=== PATIENT | female | born 1960 ===

== ENCOUNTER 2020-08-23 14:50 | Inpatient (IN) | payer BC, OTHER ==
[~2020-08-23] VITALS: Ht 170.2 cm; Wt 111.1 kg
[2020-08-23] MEDS ORDERED: ONDANSETRON 4 MG/2 ML (SDV) Z0FRAN IV PRN (16:45)
[2020-08-23] MEDS ORDERED: ACETAMINOPHEN 325 MG TABLET PO PRN (16:45)
[2020-08-23 19:14] VITALS: BP 124/66
[2020-08-23 19:20] LABS: BASOPHILS % (AUTO) 0 % (0-10); EOSINOPHILS % (AUTO) 0 % (0-10); HEMATOCRIT 36 % (35-52); HEMOGLOBIN 12.8 g/dL (11.5-16.0); LYMPHOCYTES # (AUTO) 0.5 10^3/uL (1.0-4.0); LYMPHOCYTES % (AUTO) 6 % (12-44); MEAN CORPUSCULAR HEMOGLOBIN 34 pg (25-34); MEAN CORPUSCULAR HGB CONC 36 g/dL (32-36); MEAN CORPUSCULAR VOLUME 94 fL (80-99); MEAN PLATELET VOLUME 9.3 fL (9.0-12.2); MONOCYTES # (AUTO) 0.3 10^3/uL (0.0-1.0); MONOCYTES % (AUTO) 3 % (0-12); NEUTROPHILS # (AUTO) 8.5 10^3/uL (1.8-7.8); NEUTROPHILS % (AUTO) 90 % (42-75); PLATELET COUNT 294 10^3/uL (130-400); WHITE BLOOD COUNT 9.4 10^3/uL (4.3-11.0)
[2020-08-23] MEDS: ENOXAPARIN 40 MG/0.4 ML (LOVENOX) SYR SC SCH (19:31)
[2020-08-23 19:45] LABS: ALANINE AMINOTRANSFERASE 60 U/L (0-55); ALKALINE PHOSPHATASE 86 U/L (40-136); BILIRUBIN,TOTAL 0.5 MG/DL (0.1-1.0); BUN/CREATININE RATIO 20; CALCIUM 8.7 MG/DL (8.5-10.1); CARBON DIOXIDE 21 MMOL/L (21-32); CHLORIDE 103 MMOL/L (98-107); GFR ESTIMATED > 60; GLUCOSE 127 MG/DL (70-105); POTASSIUM 4.2 MMOL/L (3.6-5.0); SODIUM 139 MMOL/L (135-145); TOTAL PROTEIN 7.1 GM/DL (6.4-8.2)
[2020-08-23 20:13] LABS: FIBRIN DEGRADATION PRODUCTS 3.15 UG/ML (0.00-0.49); INR 1.1 (0.8-1.4); PROTHROMBIN TIME PATIENT 14.2 SEC (12.2-14.7)
[2020-08-23 20:29] LABS: LYMPHOCYTES % (MANUAL) 5 %; MONOCYTES % (MANUAL) 2 %; NEUTROPHILS % (MANUAL) 93 %; RBC MORPH NORMAL
[2020-08-23 20:38] VITALS: BP 130/69
[2020-08-24 00:24] VITALS: BP 132/70
[2020-08-24 04:00] VITALS: BP 118/67
[2020-08-24] MEDS: guaiFENesin SYRUP 100 MG/5 ML 10 ML (ROBITUSSIN SF) PO PRN (04:36)
[2020-08-24] MEDS: LEVOTHYROXINE 150 MCG (LEVOTHROID) TAB PO SCH (06:05)
[2020-08-24 08:00] VITALS: BP 119/89
--- NOTE | 2020-08-24 08:34 | Diagnostic Imaging Report ---
INDICATION: Pneumonia. Time of exam: 4:38 AM No prior studies are available for comparison. Heart size is normal. There appear to be minimal patchy infiltrate right mid lung field. There may be some mild right perihilar infiltrate as well. Left lung is fairly clear. No effusion or pneumothorax is detected. IMPRESSION: Patchy right-sided pulmonary infiltrate suggestive of pneumonia. Dictated by: Dictated on workstation # [id number]
[2020-08-24 12:00] VITALS: BP 119/72
[2020-08-24] MEDS ORDERED: NS IV 500 ML 500 ML IV SCH (12:30)
[2020-08-24] MEDS ORDERED: REMDESIVIR INJ (NON-FORMULARY) 200 MG in NS (IVPB) 210 ML IV NR (12:30)
--- NOTE | 2020-08-24 12:40 | History & Physical-Hospitalist ---
History of Present Illness HPI/Chief Complaint Pt is a 60yo female with past medical history of hypothyroidism who presented to outside ER due to nausea vomiting and weakness. She diagnosed with COVID last week with symptom onset 8 days ago. She continued to feel weak and was unable to keep anything down prompting her to seek evaluation yesterday. Chest x-ray showed right-sided pneumonia. And she was unable to tolerate any oral intake still. She is mildly hypoxic requiring 3 L to keep her oxygen saturation above 90. She was admitted for further management. This morning she states she is feeling better and her nausea is improving. She is still on oxygen. Her only concern is about her ability to pay for this hospital stay. 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 Patients Allergies have been reviewed. Allergies Allergies Coded Allergies No Allergy Information Available (Xnyyanerwa72/6/20) Past Rjmicql-Flksfu-Hkgpqs Hx Past Med/Social Hx: Reviewed Nursing Past Med/Soc Hx Patient Social History Alcohol Use: Denies Use Recreational Drug Use: No Smoking Status: Unknown if Ever Smoked Physical Abuse Screen: No Sexual Abuse: No Recent Foreign Travel: No Contact w/other who traveled: No Recent Hopitalizations: No Recent Infectious Disease Expo: Yes Immunizations Up To Date Pediatric: No Seasonal Allergies Seasonal Allergies: Yes Past Medical History Currently Using CPAP: No Currently Using BIPAP: No Sexually Transmitted Disease: No HIV/AIDS: No Female Reproductive Disorders: Denies Are Your Blood Sugars Over 250: No History of Blood Disorders: No Adverse Reaction to Blood Dominguez: No Family History Reviewed Nursing Family Hx Review of Systems Constitutional: fever, malaise, weakness Respiratory: cough, phlegm Cardiovascular: No chest pain, No palpitations Gastrointestinal: No abdominal pain; constipation, nausea, vomiting Genitourinary: No decreased output, No dysuria Musculoskeletal: no symptoms reported Skin: no symptoms reported Psychiatric/Neurological: No Symptoms Reported Physical Exam Physical Exam Vital Signs Vital Signs - First Documented 08/23/20 19:14 Temp 36.6 Pulse 73 Resp 20 B/P (MAP) 124/66 Pulse Ox 91 O2 Delivery Nasal Cannula O2 Flow Rate 3.00 Capillary Refill : Less Than 3 Seconds Height, Weight, BMI Height: '" Weight: lbs. oz. kg; 38.35 BMI Method: General Appearance: No Apparent Distress, WD/WN, Obese HEENT: PERRL/EOMI, Moist Mucous Membranes Neck: Normal Inspection, Supple Respiratory: Lungs Clear, No Accessory Muscle Use, No Respiratory Distress Cardiovascular: Regular Rate, Rhythm, No Murmur Gastrointestinal: Normal Bowel Sounds, Non Tender, Soft Extremity: No Calf Tenderness, No Pedal Edema Neurologic/Psychiatric: Alert, Oriented x3, Normal Mood/Affect Skin: Normal Color, Warm/Dry Results Results/Procedures Labs Laboratory Tests 08/23/20 18:55 Patient resulted labs reviewed. Imaging: Reviewed Imaging Report Imaging [facility] [place] NAME: ANNE STRONG [facility] REC#: [id number] PT STATUS: ADM IN : 1960 PHYSICIAN: CHAPINCITO CORREA MD ADMIT DATE: 08/23/20 Draft Date of Exam:08/24/20 CHEST 1 VIEW, AP/PA ONLY INDICATION: Pneumonia. Time of exam: 4:38 AM No prior studies are available for comparison. Heart size is normal. There appear to be minimal patchy infiltrate right mid lung field. There may be some mild right perihilar infiltrate as well. Left lung is fairly clear. No effusion or pneumothorax is detected. IMPRESSION: Patchy right-sided pulmonary infiltrate suggestive of pneumonia. Dictated on workstation # [id number] Dict: 08/24/20 0756 Trans: 08/24/20 0833 LC [id number] Interpreted by: ERICK FERNANDEZ MD Electronically signed by: Assessment/Plan Admission Diagnosis Acute Hypoxic respiratory failure from COVID19 Admission Status: Inpatient Order (span 2 midnights) Reason for Inpatient Admission: see below Assessment and Plan Acute Hypoxic respiratory failure from COVID19 RML PNA Intractable nausea and vomiting Attempted home management for a week but unable to continue at home Continue decadron Discussed Remdesivir and convalescent plasma with patient and EUA status, pt is agreeable to treatment IS Prone as able MAT protocol Lovenox Procal pending Continue Azithromycin Zofran prn nausea Hypothyroidism Continue home synthroid DVT ppx: Lovenox Diagnosis/Problems Diagnosis/Problems (1) Acute respiratory failure (2) Insulin dependent diabetes mellitus (3) Hypothyroidism (4) COVID-19 Clinical Quality Measures DVT/VTE Risk/Contraindication: Risk Factor Score Per Nursin RFS Level Per Nursing on Admit: 3=High CHAPINCITO CORREA MD Aug 24, 2020 12:40
[2020-08-24] MEDS: AZITHROMYCIN 250 MG TAB (ZITHROMAX) PO SCH (13:33)
[2020-08-24 16:07] VITALS: BP 112/59
[2020-08-24] MEDS ORDERED: ANTACID SUSP 30 ML UDC (MYLANTA) PO PRN (17:00)
[2020-08-24] MEDS ORDERED: BISACODYL 10 MG SUPP (DULCOLAX) PR PRN (17:00)
[2020-08-24] MEDS ORDERED: ONDANSETRON 4 MG/2 ML (SDV) Z0FRAN IV PRN (17:00)
[2020-08-24] MEDS ORDERED: hydrOXYzine (ATARAX) 10 MG TAB PO PRN (17:00)
[2020-08-24] MEDS ORDERED: MILK OF MAGNESIA 400 MG/5 ML 30 ML UDC PO PRN (17:00)
[2020-08-24] MEDS ORDERED: ACETAMINOPHEN 325 MG TABLET PO PRN (17:00)
[2020-08-24] MEDS ORDERED: MELATONIN 3 MG TABLET PO PRN (17:00)
[2020-08-24] MEDS: ENOXAPARIN 40 MG/0.4 ML (LOVENOX) SYR SC SCH (17:11)
[2020-08-24 19:17] VITALS: BP 120/80
[2020-08-24] MEDS: BENZONATATE 100 MG (TESSALON) CAPSULE PO PRN (21:15)
[2020-08-25] VITALS (9 sets, daily range): BP systolic 107–136; BP diastolic 55–78
[2020-08-25] MEDS: LEVOTHYROXINE 150 MCG (LEVOTHROID) TAB PO SCH (06:26)
[2020-08-25] MEDS: AZITHROMYCIN 250 MG TAB (ZITHROMAX) PO SCH (08:17)
[2020-08-25] MEDS ORDERED: OMEP-401 PO (10:57)
[2020-08-25] MEDS ORDERED: ASCO1TAB39 PO (10:57)
[2020-08-25] MEDS ORDERED: AZIT250T12 PO (10:57)
[2020-08-25] MEDS ORDERED: NAPR220T66 PO (10:57)
[2020-08-25] MEDS ORDERED: MAGN400T39 PO (10:57)
[2020-08-25] MEDS ORDERED: FLAX100031 PO (10:57)
[2020-08-25] MEDS ORDERED: CHOL100048 PO (10:57)
[2020-08-25] MEDS ORDERED: [UNRECOGNIZED DRUG - OTHER] PO (10:57)
[2020-08-25] MEDS ORDERED: FISH1CAP15 PO (10:57)
[2020-08-25] MEDS ORDERED: SOUR1000 PO (10:57)
[2020-08-25] MEDS ORDERED: LEVO150T96 PO (10:57)
[2020-08-25] MEDS ORDERED: CYAN500T62 PO (10:57)
--- NOTE | 2020-08-25 10:59 | NUR ---
SPOKE WITH THE PT ( I CALLED HER ROOM PHONE) AND WENT THRU THE EXT MED HISTORY TO COMPLETE THE MED REC LEVOTHYROXINE 150MCG WAS LAST FILLED ON 07-03-2020 #30/30DS- I DID DOCUMENT THE PAST DUE FILL ON THE MED REC OTC MEDS: HAIR, SKIN,NAILS FLAXSEED VIT D VIT B12 FISH OIL MAGNESIUM OMEPRAZOLE TART TALBOT ALEVE LIVER TONE
[2020-08-25] MEDS: REMDESIVIR INJ (NON-FORMULARY) 100 MG in NS (IVPB) 230 ML IV SCH (12:10)
--- NOTE | 2020-08-25 12:59 | Progress Note - Hospitalist ---
Subjective HPI/CC On Admission Date Seen by Provider: Aug 25, 2020 Time Seen by Provider: 12:55 Pt is a 60yo female with past medical history of hypothyroidism who presented to outside ER due to nausea vomiting and weakness. She diagnosed with COVID last week with symptom onset 8 days ago. She continued to feel weak and was unable to keep anything down prompting her to seek evaluation yesterday. Chest x-ray showed right-sided pneumonia. And she was unable to tolerate any oral intake still. She is mildly hypoxic requiring 3 L to keep her oxygen saturation above 90. She was admitted for further management. This morning she states she is feeling better and her nausea is improving. She is still on oxygen. Her only concern is about her ability to pay for this hospital stay. Subjective/Events-last exam Pt reports feeling slightly better today but not sleeping well. Objective Exam Vital Signs Vital Signs Date Time Temp Pulse Resp B/P (MAP) Pulse Ox O2 Delivery O2 Flow Rate FiO2 08/25/20 08:00 96 Nasal Cannula 3.00 08/25/20 08:00 36.1 57 16 108/66 (80) Capillary Refill : Less Than 3 Seconds General Appearance: No Apparent Distress, WD/WN, Obese Respiratory: No Accessory Muscle Use, Crackles (in bases); No Wheezing; Other (on nasal cannula) Cardiovascular: Regular Rate, Rhythm, No Murmur Gastrointestinal: Normal Bowel Sounds, Non Tender, Soft Neurologic/Psychiatric: Alert, Oriented x3 Results/Procedures Lab Patient resulted labs reviewed. Imaging: Reviewed Imaging Report Assessment/Plan Assessment and Plan Assess & Plan/Chief Complaint Acute Hypoxic respiratory failure from COVID19 RML PNA Intractable nausea and vomiting Continue decadron Discussed Remdesivir and convalescent plasma with patient and EUA status, pt is agreeable to treatment awaiting arrival of plasma IS Prone as able MAT protocol Lovenox Continue Azithromycin Zofran prn nausea Hypothyroidism Continue home synthroid DVT ppx: Lovenox Diagnosis/Problems Diagnosis/Problems (1) Acute respiratory failure (2) Insulin dependent diabetes mellitus (3) Hypothyroidism (4) COVID-19 Clinical Quality Measures DVT/VTE Risk/Contraindication: Risk Factor Score Per Nursin RFS Level Per Nursing on Admit: 3=High CHAPINCITO PATEL MD Aug 25, 2020 12:59
[2020-08-25] MEDS ORDERED: diphenhydrAMINE 25 MG TAB (BENADRYL) PO PRN (13:00)
--- NOTE | 2020-08-25 15:56 | NUR ---
CM/SS: Visited with pt (via telephone) as per consult related to financial aide assistance Plan: Undetermined at this time, pt is from home and lives with her brother and mother Summary: This worker introduced herself to pt and explained her role. Pt reports she did talk with financial services and feels ok about her medical bill and the information received. Pt was able to tell this worker the process of getting some assistance and what she needed to complete and return. Pt does not have any medical equipment at home and reports that she, her brother and her mother live together and manage ok. She reports that things were fine till she got COVID. This worker will follow up with her near or at time of discharge to see if she has any other needs at time of discharge. Pt verbalizes understanding. This worker will follow up.
[2020-08-25] MEDS ORDERED: NS IV 500 ML 500 ML IV SCH (16:15)
[2020-08-25] MEDS: ENOXAPARIN 40 MG/0.4 ML (LOVENOX) SYR SC SCH (20:09)
[2020-08-25] MEDS: guaiFENesin SYRUP 100 MG/5 ML 10 ML (ROBITUSSIN SF) PO PRN (22:31)
[2020-08-25] MEDS: BENZONATATE 100 MG (TESSALON) CAPSULE PO PRN (22:31)
[2020-08-26 00:28] VITALS: BP 119/56
[2020-08-26 04:22] VITALS: BP 116/62
[2020-08-26 06:26] LABS: HEMOGLOBIN 10.5 g/dL (11.5-16.0); MEAN PLATELET VOLUME 9.1 fL (9.0-12.2); WHITE BLOOD COUNT 8.9 10^3/uL (4.3-11.0)
[2020-08-26] MEDS: LEVOTHYROXINE 150 MCG (LEVOTHROID) TAB PO SCH (06:45)
[2020-08-26 06:56] LABS: ALBUMIN 3.6 GM/DL (3.2-4.5); CHLORIDE 108 MMOL/L (98-107); POTASSIUM 3.5 MMOL/L (3.6-5.0); SODIUM 142 MMOL/L (135-145)
[2020-08-26 06:57] LABS: CALCIUM 8.5 MG/DL (8.5-10.1)
[2020-08-26 06:58] LABS: GLUCOSE 91 MG/DL (70-105)
[2020-08-26 06:59] LABS: CARBON DIOXIDE 23 MMOL/L (21-32)
[2020-08-26 07:00] LABS: BILIRUBIN,TOTAL 0.4 MG/DL (0.1-1.0)
[2020-08-26 07:02] LABS: ALKALINE PHOSPHATASE 61 U/L (40-136); CREATININE SERUM 0.71 MG/DL (0.60-1.30); GFR ESTIMATED > 60
[2020-08-26 07:03] LABS: BUN/CREATININE RATIO 27
[2020-08-26 07:05] LABS: ALANINE AMINOTRANSFERASE 41 U/L (0-55)
[2020-08-26 08:00] VITALS: BP 107/61
--- NOTE | 2020-08-26 08:35 | NUR ---
patient refuses to take antibiotic that she already has in her purse dr. cerda aware that the patient is taking her home medications.
[2020-08-26] MEDS: AZITHROMYCIN 250 MG TAB (ZITHROMAX) PO SCH (08:50)
[2020-08-26 12:00] VITALS: BP 129/75
[2020-08-26] MEDS: REMDESIVIR INJ (NON-FORMULARY) 100 MG in NS (IVPB) 230 ML IV SCH (12:12)
--- NOTE | 2020-08-26 14:58 | Progress Note - Hospitalist ---
Subjective HPI/CC On Admission Date Seen by Provider: Aug 26, 2020 Time Seen by Provider: 14:52 Pt is a 60yo female with past medical history of hypothyroidism who presented to outside ER due to nausea vomiting and weakness. She diagnosed with COVID last week with symptom onset 8 days ago. She continued to feel weak and was unable to keep anything down prompting her to seek evaluation yesterday. Chest x-ray showed right-sided pneumonia. And she was unable to tolerate any oral intake still. She is mildly hypoxic requiring 3 L to keep her oxygen saturation above 90. She was admitted for further management. This morning she states she is feeling better and her nausea is improving. She is still on oxygen. Her only concern is about her ability to pay for this hospital stay. Subjective/Events-last exam Pt reports feeling well but she is exhausted. Has not slept well here. Objective Exam Vital Signs Vital Signs Date Time Temp Pulse Resp B/P (MAP) Pulse Ox O2 Delivery O2 Flow Rate FiO2 08/26/20 12:00 36.2 56 16 129/75 (93) 94 Nasal Cannula 3.00 Capillary Refill : Less Than 3 Seconds General Appearance: No Apparent Distress, Obese Respiratory: Lungs Clear Cardiovascular: Regular Rate, Rhythm, No Murmur Gastrointestinal: Normal Bowel Sounds, Non Tender, Soft Neurologic/Psychiatric: Alert, Oriented x3 Results/Procedures Lab Laboratory Tests 08/26/20 06:02 Patient resulted labs reviewed. Imaging: Reviewed Imaging Report Assessment/Plan Assessment and Plan Assess & Plan/Chief Complaint Acute Hypoxic respiratory failure from COVID19 RML PNA Intractable nausea and vomiting Continue decadron Continue Remdesivir and s/p convalescent plasma IS Prone as able MAT protocol Lovenox Continue Azithromycin Zofran prn nausea Hypothyroidism Continue home synthroid Insomnia Attempt melatonin and benadryl with no relief Low dose Ambien tonight prn DVT ppx: Lovenox Diagnosis/Problems Diagnosis/Problems (1) Acute respiratory failure (2) Insulin dependent diabetes mellitus (3) Hypothyroidism (4) COVID-19 Clinical Quality Measures DVT/VTE Risk/Contraindication: Risk Factor Score Per Nursin RFS Level Per Nursing on Admit: 3=High CHAPINCITO PATEL MD Aug 26, 2020 14:58
[2020-08-26] MEDS ORDERED: ZOLPIDEM 5 MG (AMBIEN) TAB PO PRN (15:00)
[2020-08-26 16:29] VITALS: BP 113/64
[2020-08-26 19:32] VITALS: BP 134/68
[2020-08-26] MEDS: ENOXAPARIN 40 MG/0.4 ML (LOVENOX) SYR SC SCH (21:13)
[2020-08-27 00:06] VITALS: BP 127/71
[2020-08-27 04:04] VITALS: BP 129/72
[2020-08-27] MEDS: LEVOTHYROXINE 150 MCG (LEVOTHROID) TAB PO SCH (05:50)
[2020-08-27 06:38] LABS: HEMOGLOBIN 12.4 g/dL (11.5-16.0); MEAN PLATELET VOLUME 10.6 fL (9.0-12.2); WHITE BLOOD COUNT 6.4 10^3/uL (4.3-11.0)
[2020-08-27 06:42] LABS: ALBUMIN 3.6 GM/DL (3.2-4.5); CHLORIDE 107 MMOL/L (98-107); POTASSIUM 3.8 MMOL/L (3.6-5.0); SODIUM 143 MMOL/L (135-145)
[2020-08-27 06:43] LABS: CALCIUM 8.4 MG/DL (8.5-10.1)
[2020-08-27 06:44] LABS: GLUCOSE 98 MG/DL (70-105); TOTAL PROTEIN 6.1 GM/DL (6.4-8.2)
[2020-08-27 06:45] LABS: CARBON DIOXIDE 24 MMOL/L (21-32)
[2020-08-27 06:46] LABS: BILIRUBIN,TOTAL 0.4 MG/DL (0.1-1.0)
[2020-08-27 06:48] LABS: ALKALINE PHOSPHATASE 61 U/L (40-136); CREATININE SERUM 0.69 MG/DL (0.60-1.30); GFR ESTIMATED > 60
[2020-08-27 06:49] LABS: BUN/CREATININE RATIO 23
[2020-08-27 06:51] LABS: ALANINE AMINOTRANSFERASE 37 U/L (0-55)
[2020-08-27 08:00] VITALS: BP 119/70
[2020-08-27] MEDS: AZITHROMYCIN 250 MG TAB (ZITHROMAX) PO SCH (08:21)
--- NOTE | 2020-08-27 09:00 | NUR ---
PT REFUSED AZITHROMYCIN D/T HAVING HER OWN. DR PATEL AWARE.
[2020-08-27 12:00] VITALS: BP 113/60
--- NOTE | 2020-08-27 12:35 | Discharge Inst-Simple/Standard ---
Discharge Inst-Standard Discharge Medications New, Converted or Re-Newed RX: Transmitted to Pharmacy Patient Instructions/Follow Up Plan of Care/Instructions/FU: Please continue to take your medications as written. Please follow up with your primary care doctor to follow up this hospital stay. Activity as Tolerated: Yes Discharge Diet: No Restrictions Return to The Hospital For: Chest pain, shortness of breath, fever, cough, confusion, if you feel you are getting worse. Planned Outpatient Orders/Ref. Pneu Vac Indicated: Yes CHAPINCITO PATEL MD Aug 27, 2020 12:35
[2020-08-27] MEDS ORDERED: DEXA6TAB6 PO (12:36)
[2020-08-27] MEDS: REMDESIVIR INJ (NON-FORMULARY) 100 MG in NS (IVPB) 230 ML IV SCH (12:41)
--- NOTE | 2020-08-27 14:15 | NUR ---
THIS RN DID 02 HOME STUDY IN ROOM WITH PT. SHE WALKED AROUND IN HER ROOM ATTACHED TO AN 02 SPIROMETER AND NEVER FELL BELOW 91%. DURING THE STUDY, SHE TALKED THE WHOLE TIME TO RN. DR PATEL AND SERGE WITH RT NOTIFIED AND BOTH SAID SHE WOULD NOT NEED 02 AT HOME. PT CALLED [facility] AROUND 1300 AND TOLD HIM TO GO AHEAD AND COME PICK HER UP AROUND 1500.
--- NOTE | 2020-08-27 14:19 | Discharge Summary ---
Diagnosis/Chief Complaint Date of Admission Aug 23, 2020 at 18:15 Date of Discharge Discharge Date: Aug 27, 2020 Admission Diagnosis Acute Hypoxic respiratory failure from COVID19 Primary Care Discharge Diagnosis (1) Acute respiratory failure (2) Insulin dependent diabetes mellitus (3) Hypothyroidism (4) COVID-19 Discharge Summary Discharge Physical Exam Allergies: Coded Allergies: No Allergy Information Available (Unverified , 08/23/20) Vitals & I&Os Vital Signs Date Time Temp Pulse Resp B/P (MAP) Pulse Ox O2 Delivery O2 Flow Rate FiO2 08/27/20 12:00 35.9 76 20 113/60 (77) 91 Nasal Cannula 1.00 Hospital Course Labs (last 24 hrs) Laboratory Tests 08/27/20 06:01: White Blood Count 6.4, Red Blood Count 4.35, Hemoglobin 12.4, Hematocrit 39, Argelia n Corpuscular Volume 89, Mean Corpuscular Hemoglobin 29, Mean Corpuscular Hemoglobin Concent 32, Red Cell Distribution Width 13.6, Platelet Count 208, Mean Platelet Volume 10.6, Sodium Level 143, Potassium Level 3.8, Chloride Level 107, Carbon Dioxide Level 24, Anion Gap 12, Blood Urea Nitrogen 16, Creatinine 0.69, Estimat Glomerular Filtration Rate > 60, BUN/Creatinine Ratio 23, Glucose Level 98, Calcium Level 8.4L, Corrected Calcium 8.7, Total Bilirubin 0.4, Aspartate Amino Transf (AST/SGOT) 19, Alanine Aminotransferase (ALT/SGPT) 37, Alkaline Phosphatase 61, Total Protein 6.1L, Albumin 3.6 Patient resulted labs reviewed. Imaging: Reviewed Imaging Report Discharge Home Medications: Active Scripts Active Decadron (Dexamethasone) 6 Mg Tablet 6 Mg PO DAILY Reported [Liver Tone] 2 Cap PO BID Aleve (Naproxen Sodium) 220 Mg Tablet 220 Mg PO BID Tart Paredes Extract (Sour Paredes Extract) 1,000 Mg Capsule 2,000 Mg PO BID Omeprazole 20 Mg Tab.rap.dr 20 Mg PO DAILY Magnesium (Magnesium Oxide) 400 Mg Tablet 400 Mg PO HS Fish Oil 1,200 mg Fish Oil (Fish Oil/Dha/Epa) 1 Each Capsule 1 Each PO HS Vitamin B-12 (Cyanocobalamin (Vitamin B-12)) 500 Mcg Tablet 500 Mcg PO DAILY Vitamin D3 (Cholecalciferol (Vitamin D3)) 25 Mcg Capsule 25 Mcg PO DAILY Flax Seed Oil (Flaxseed Oil) 1,000 Mg Capsule 1,000 Mg PO DAILY Hair Skin Nails-Biotin Gummies (Ascorbic Acid/Vitamin E/Biotin) 1 Each Tab.chew 1 Each PO BID Euthyrox (Levothyroxine Sodium) 150 Mcg Tablet 150 Mcg PO DAILY LAST FILLED 07-03-2020 #30 Azithromycin 250 Mg Tablet 250 Mg PO DAILY FILLED 08-22-2020 #6/5 DAY SUPPLY Instructions to patient/family Please see electronic discharge instructions given to patient. Clinical Quality Measures DVT/VTE Risk/Contraindication: Risk Factor Score Per Nursin RFS Level Per Nursing on Admit: 3=High CHAPINCITO PATEL MD Aug 27, 2020 14:19
--- NOTE | 2020-08-27 16:00 | NUR ---
PT WAS DISCHARGED TODAY AND TAKEN TO ER EXIT BY THIS RN AND FELLOW RN, JUAN CARLOS VIA W/C. PT WAS GIVEN HER D/C PAPERWORK FROM THIS NURSE AND ALSO SIGNED D/C PAPER THAT WAS PUT IN HER CHART. PT WAS PICKED UP BY PRIVATE VEHICLE AND HAD ALL OF HER BELONGINGS.
--- NOTE | 2020-08-30 15:42 | NUR ---
PT CALLED STATING THAT THE [facility] IN [place], [place] HAS BEEN CALLING HER ABOUT A RX THAT DR. PATEL HAS SENT IN FOR HER. THIS RN OPENS PT'S DISCHARGE PACKET AND SEES THAT AMANDA HAD ORDERED PT TO CONTINUE TAKING PO DECADRON. THIS RN THEN CALLED DR. GUARDADO D/T AMANDA BEING OFF. GEO STATES THAT PT DOES NOT NEED TO CONTINUE THE MEDICATION AT THIS TIME. PT WAS DISCHARGED ON 08/27/20 AND IS DOING WELL PER DISCUSSION WITH PATIENT. THIS RN THEN RETURNS CALL TO PT AND REPORTS THAT DR. GUARDADO HAS STATE THAT SHE DOES NOT NEED TO CONTINUE THE DECADRON. PT VERBALIZES UNDERSTANDING.
== END 2020-08-27 16:00 | disposition home or self-care (01) | DRG 177 ==
LOC: 4TH 18:15
PROVIDERS: ADMIT Family Medicine; ATTEND Family Medicine
PROC: XW033E5 Introduction of Remdesivir Anti-infective into Peripheral Vein, Percutaneous Approach, New Technology Group 5 (ICD-10-PCS; principal; 2020-08-24)
PROC: XW13325 Transfusion of Convalescent Plasma (Nonautologous) into Peripheral Vein, Percutaneous Approach, New Technology Group 5 (ICD-10-PCS; 2020-08-25)
DX: U07.1 COVID-19 (principal); J12.89 Other viral pneumonia; J96.01 Acute respiratory failure with hypoxia; R11.2 Nausea with vomiting, unspecified; E03.9 Hypothyroidism, unspecified; E11.9 Type 2 diabetes mellitus without complications; E66.9 Obesity, unspecified; Z68.38 Body mass index [BMI] 38.0-38.9, adult; G47.00 Insomnia, unspecified
CPT/HCPCS: 36415; 71045; 80053; 82728; 83615; 83880; 84145; 85007; 85027; 85379; 85610; 86900; 86901